=== PATIENT | male | born 1975 ===

== ENCOUNTER 2023-12-28 02:10 | Emergency (ER) | payer MEDICAID, SELFPAY ==
--- NOTE | ~2023-12-28 | CT_ITS ---
EXAMINATION: CT ABDOMEN AND PELVIS WITHOUT CONTRAST CLINICAL INFORMATION: Right flank pain COMPARISON: 02/06/2015 TECHNIQUE: Multidetector volumetric imaging was performed from the superior aspect of the liver through the pubic symphysis. Sagittal and coronal reformatted images were obtained on the technologist's workstation. This CT examination was performed using dose optimization techniques as appropriate, variously including the following: *Automated exposure control *Adjustment of mA and/or kV according to patient size (this includes techniques or standardized protocols for targeted exams where dose is matched to indication/reason for exam; i.e. extremities or head) *Use of iterative reconstruction technique DLP: 784 mGy-cm FINDINGS: LUNG BASES: Subsegmental atelectasis at the right lung base. Right hemidiaphragm elevation noted. LIVER, GALLBLADDER, AND BILIARY TREE: The liver is normal in size, shape, and attenuation. No focal hepatic lesion or biliary ductal dilatation is identified on this noncontrast exam. Patient is status post cholecystectomy. PANCREAS: Unremarkable. SPLEEN: Unremarkable. ADRENAL GLANDS: Unremarkable. KIDNEYS AND URETERS: There is a 3 mm calculus at the distal right ureter with mild hydronephrosis. No left-sided hydronephrosis. Few scattered bilateral renal calculi are noted measuring up to 3 mm. BLADDER: Unremarkable. GASTROINTESTINAL TRACT: Assessment for wall thickening in some segments of the colon is limited due to luminal collapse, though no significant pericolonic stranding is seen to strongly suggest a colitis. Mild colonic diverticulosis. No evidence of bowel obstruction. The appendix is unremarkable. No free fluid or free air is seen. ABDOMINAL WALL: No significant hernia is appreciated. LYMPH NODES: Normal. VASCULAR: Scattered mild atherosclerotic calcification. PELVIC VISCERA: Unremarkable. OSSEOUS STRUCTURES: Scattered endplate osteophytes in the spine. Degenerative disc disease at L5-S1. CT/CT abdomen pelvis wo IV con IMPRESSION: 1. Distal right ureteral calculus measuring 3 mm with mild hydronephrosis. 2. Few scattered bilateral renal calculi.
[2023-12-28 02:15] VITALS: BP 199/112; PULSE 72; RESP 18; TEMP 36.8; O2SAT 99; BMI 31.8
[2023-12-28 02:33] LABS: Basophils Absolute Auto 0.1 X10*3/uL (0.0-0.2); Basophils Percent Auto 0.5 % (0-2); Eosinophils Absolute Auto 0.5 X10*3/uL (0.0-0.4); Eosinophils Percent Auto 3.5 % (0-4); Hemoglobin 15.5 g/dl (14.0-18.0); Imm Gran Abs Auto 0.05 X10*3/uL (0.00-0.03); Imm Gran Pct Auto 0.4 % (0.0-0.4); Lymphocytes Absolute Auto 3.9 X10*3/uL (1.2-4.9); Lymphocytes Percent Auto 28.4 % (20-40); MANUAL DIFF FLAG NO; Mean Corpuscular Hemoglobin 30.8 pg (27.0-33.0); Mean Corpuscular Volume 85.3 fL (80.0-98.0); Mean Platelet Volume 9.3 fL (9.4-12.4); Monocytes Percent Auto 7.1 % (2-11); Neutrophils Absolute Auto 8.2 x10*3/uL (2.0-8.3); Neutrophils Percent Auto 60.1 % (45-73); Platelet Count 391 X10*3/uL (160-400); Red Blood Count 5.04 X10*6/uL (4.60-5.80); Red Cell Distribution Width 13.2 % (11.0-16.0); White Blood Count 13.7 X10*3/uL (4.8-10.8)
[2023-12-28 03:01] LABS: Alanine Aminotransferase 44 U/L (0-40); Albumin Level 4.1 g/dL (3.5-5.0); Alkaline Phosphatase 87 U/L (39-117); Anion Gap 14 (12-20); Aspartate Amino Transferase 25 U/L (5-37); Bilirubin Total 0.6 mg/dL (0.0-1.0); Blood Urea Nitrogen 10 mg/dL (9-16); Calcium 9.5 mg/dL (8.4-10.2); Carbon Dioxide 26 mmol/L (22-29); Chloride 106 mmol/L (96-108); Creatinine Clr Calc Pharmacy 104.9; Estimated Glomerular Filt Rate > 60; Glucose Random 121 mg/dL (60-115); Potassium 3.2 mmol/L (3.3-5.1); Sodium 143 mmol/L (135-145); Total Protein 7.5 g/dL (6.5-8.0)
--- NOTE | 2023-12-28 03:27 | ED.ABDPAIN ---
HPI - Abdominal Pain General Chief Complaint: Abdominal Pain Stated Complaint: severe back pain Time Seen by Provider: 12/28/23 03:25 History of Present Illness HPI narrative: Patient is a 48-year-old male presents today with having sudden onset of right flank pain 10/10 associated with nausea no change with movement history of kidney stones in the past feels the same. No history of abdominal surgery. Related Data Previous Rx's ?Medication ?Instructions ?Recorded ibuprofen 400 mg tablet 400 mg PO Q6H PRN pain #20 tabs 12/28/23 ondansetron 4 mg disintegrating 4 mg PO TID PRN nausea and 12/28/23 tablet vomiting 5 days #10 tabs oxycodone 5 mg tablet 5 mg PO Q8H PRN pain #7 tabs 12/28/23 tamsulosin 0.4 mg capsule (Flomax) 0.4 mg PO DAILY #7 caps 12/28/23 Allergies Allergy/AdvReac Type Severity Reaction Status Date / Time No Known Allergies Allergy Unverified 12/28/23 02:17 Review of Systems Review of Systems Positive right flank pain Yes all other systems are reviewed and are negative [facility] Past Medical History Attestation statement: The following information was validated with the patient. Social History Social History Use of substances other than those prescribed or required for medical reasons: No Advance Directives: No Advance Directives Information Provided: Yes Physical Exam ED Vital Signs: Vital Signs - 24 hr 12/28/23 02:15 12/28/23 05:00 Temperature 98.2 F 97.3 F Pulse Rate 72 67 Respiratory Rate 18 16 Blood Pressure 199/112 H 167/94 H Pulse Oximetry 99 95 Oxygen Delivery Method Room Air Room Air BMI result Body Mass Index 31.8 Appearance: Alert. Oriented X3. No acute distress. Eyes: Pupils equal, round and reactive to light. ENT: Pharynx normal. Neck: Normal inspection. Neck supple. No lymph nodes noted. No crepitus CVS: Normal heart rate and rhythm. Pulses normal. Normal S1 and S2 Respiratory: No respiratory distress. Breath sounds normal. No Wheezing. No rales Abdomen: Soft and nontender. No rigidity. No distention. good BS x4 Skin: Skin warm and dry. Normal skin color. Normal skin turgor. Extremities: No lower extremity edema. Neurovascular intact to all extremities. No Lacerations. No Rash Neuro: Oriented X 3. No motor deficit. No sensory deficit. Moving all extermities. No slurred speech Medical Decision Making Medical Decision Making MDM Narrative: Patient's CT scan of the abdomen pelvis was done. Radiology's reading showed a 3 mm ureteral stone likely causing patient's pain. Given multiple doses of pain medicine. If urine is not infected, pain is controlled patient can be discharged home. His creatinine is normal. Well-appearing no distress. Differential Diagnosis Differential Diagnoses: The differential diagnosis associated with the presentation includes Renal colic, appendicitis Admission/Observation Consideration of admission/observation: Escalation of care including admission/observation considered Lab Data [facility] Lab Attestation statement: I reviewed the patient's lab results. 12/28/23 02:28 12/28/23 02:28 Labs: Lab Results 12/28/23 Range/Units 02:28 WBC 13.7 H (4.8-10.8) X10*3/uL RBC 5.04 (4.60-5.80) X10*6/uL Hgb 15.5 (14.0-18.0) g/dl Hct 43.0 (42.0-52.0) % MCV 85.3 (80.0-98.0) fL MCH 30.8 (27.0-33.0) pg MCHC 36.0 (31.0-36.0) g/dl RDW 13.2 (11.0-16.0) % Plt Count 391 (160-400) X10*3/uL MPV 9.3 L (9.4-12.4) fL Immature Gran % (Auto) 0.4 (0.0-0.4) % Neut % (Auto) 60.1 (45-73) % Lymph % (Auto) 28.4 (20-40) % [place] % (Auto) 7.1 (2-11) % Eos % (Auto) 3.5 (0-4) % Baso % (Auto) 0.5 (0-2) % Lymph # (Auto) 3.9 (1.2-4.9) X10*3/uL [place] # (Auto) 1.0 (0.1-1.2) X10*3/uL Eos # (Auto) 0.5 H (0.0-0.4) X10*3/uL Baso # (Auto) 0.1 (0.0-0.2) X10*3/uL Abs Immat Gran (auto) 0.05 H (0.00-0.03) X10*3/uL Absolute Neuts (auto) 8.2 (2.0-8.3) x10*3/uL Absolute Nucleated RBC 0.000 (0.0-0.012) X10*3/uL Nucleated RBC % (auto) 0.0 (0.0-0.2) /100WBC Sodium 143 (135-145) mmol/L Potassium 3.2 L (3.3-5.1) mmol/L Chloride 106 (96-108) mmol/L Carbon Dioxide 26 (22-29) mmol/L Anion Gap 14 (12-20) BUN 10 (9-16) mg/dL Creatinine 1.03 (0.5-1.4) mg/dL Estim Creat Clear Calc 104.9 Estimated GFR > 60 Random Glucose 121 H (60-115) mg/dL Calcium 9.5 (8.4-10.2) mg/dL Total Bilirubin 0.6 (0.0-1.0) mg/dL AST 25 (5-37) U/L ALT 44 H (0-40) U/L Alkaline Phosphatase 87 (39-117) U/L Total Protein 7.5 (6.5-8.0) g/dL Albumin 4.1 (3.5-5.0) g/dL Independent Interpretation I performed an independent interpretation of an: CT Scan (Positive ureteral stone) Radiology Impression Discussion of test interpretation with radiology: I have reviewed the radiologist's reading. Prescription Management I considered prescription management with: Antibiotic Chronic Conditions History of kidney stones Medications Administered Discontinued Medications Generic Name Dose Route Start Last Admin Trade Name Freq PRN Reason Stop Dose Admin Hydromorphone HCl 0.5 mg 12/28/23 03:26 12/28/23 03:44 Hydromorphone Hcl 0.5 Mg/0.5 Ml Syringe IVPUSH 12/28/23 03:27 0.5 mg ONCE ONE Administration Protocol Hydromorphone HCl 0.5 mg 12/28/23 04:36 12/28/23 04:48 Hydromorphone Hcl 0.5 Mg/0.5 Ml Syringe IVPUSH 12/28/23 04:37 0.5 mg ONCE ONE Administration Protocol Sodium Chloride 1,000 mls @ 999 mls/hr 12/28/23 03:30 12/28/23 04:53 Ns IV 12/28/23 04:30 Infused .Q1H1M PINKY Infusion Ketorolac Tromethamine 30 mg 12/28/23 03:25 12/28/23 03:44 Ketorolac Tromethamine 30 Mg/Ml Vial IVPUSH 12/28/23 03:26 30 mg ONCE ONE Administration Ondansetron HCl 4 mg 12/28/23 03:36 12/28/23 03:44 Ondansetron Hcl 4 Mg/2 Ml Vial IVPUSH 12/28/23 03:37 4 mg ONCE ONE Administration Discharge Plan Discharge Clinical Impression: Renal colic Patient Disposition: Still a Patient Instructions: Renal Colic (ED) Prescriptions: New tamsulosin [Flomax] 0.4 mg capsule 0.4 mg PO DAILY Qty: 7 0RF ibuprofen 400 mg tablet 400 mg PO Q6H PRN (Reason: pain) Qty: 20 0RF ondansetron 4 mg tablet,disintegrating 4 mg PO TID PRN (Reason: nausea and vomiting) 5 Days Qty: 10 0RF oxycodone 5 mg tablet 5 mg PO Q8H PRN (Reason: pain) Qty: 7 0RF Rx Instructions: Partial Fill upon patient request. Referrals: Oseas Levy MD [Physician] - 12/30/23 Print Language: Latvian
[2023-12-28] MEDS: Ketorolac Tromethamine 30 MG/ML VIAL IVPUSH (03:44)
[2023-12-28] MEDS: HYDROmorphone HCl 0.5 MG/0.5 ML SYRINGE IVPUSH ×3 (03:44→06:12)
[2023-12-28] MEDS: 0.9 % Sodium Chloride 1,000 ML 999 ML IV (03:44)
[2023-12-28] MEDS: ondansetron HCL 4 MG/2 ML VIAL IVPUSH (03:44)
--- NOTE | 2023-12-28 03:50 | PC.NURSE ---
Pt medicated per mar, Iv placed, provider into assess pt.
--- NOTE | 2023-12-28 04:52 | PC.NURSE ---
MEDICATED PER MAR.
[2023-12-28 05:00] VITALS: BP 167/94; PULSE 67; RESP 16; TEMP 36.3; O2SAT 95
[2023-12-28 05:47] LABS: Appearance Urine Clear; Color Urine Yellow; Glucose Urine UA Negative (Negative); Leukocyte Esterase Urine Negative (Negative); Nitrite Urine Negative (Negative); PH 5.5 (5.0-9.0); UMIC TRIGGER UACC YES; Urine Blood Large (3+) (Negative); Urine Ketones Negative (Negative); Urine Protein Trace mg/dL (Neg-Trace)
[2023-12-28 05:52] LABS: Bacteria Urine None Seen (None Seen); Hyaline Casts Urine 0-2 /LPF (0-2); RBC Urine >20 /HPF (0-2); Squamous Epithelial Cell Urine 0-2 /HPF (0-2); WBC Urine 0-5 /HPF (0-5)
[2023-12-28 06:09] VITALS: BP 178/93; PULSE 65; RESP 18; TEMP 36.4; O2SAT 97
--- NOTE | 2023-12-28 06:17 | PC.NURSE ---
PT MEDICATED PER JUL FOR PAIN MANAGEMENT.
--- NOTE | 2023-12-28 06:44 | MHC.EDTECH ---
Olivia Jennings aware of elevated blood pressure, per provider okay to discharge home. Reviewed discharge instruction with pt. pt verbalized understanding.
[2023-12-28 06:53] VITALS: BP 185/92; PULSE 72; RESP 20; TEMP 36.8; O2SAT 98
== END 2023-12-28 06:54 | disposition home or self-care (01) ==
PROVIDERS: Emergency Provider Emergency Medicine Emergency Medical Services
DX: N23 Unspecified renal colic (principal); M54.50 Low back pain, unspecified; R11.0 Nausea; Z79.899 Other long term (current) drug therapy
CPT/HCPCS: 36415; 74176; 80053; 81001; 85025; 96361; 96374; 96375; 96376; 99285; J1170; J1885; J2405

== ENCOUNTER 2023-12-31 05:40 | Emergency (ER) | payer MEDICAID, SELFPAY ==
--- NOTE | ~2023-12-31 | CT_ITS ---
EXAMINATION: CT ABDOMEN AND PELVIS WITHOUT CONTRAST CLINICAL INFORMATION: Abdominal pain. COMPARISON: 12/28/2023 TECHNIQUE: Multidetector volumetric imaging was performed from the superior aspect of the liver through the pubic symphysis. Sagittal and coronal reformatted images were obtained on the technologist's workstation. This CT examination was performed using dose optimization techniques as appropriate, variously including the following: *Automated exposure control *Adjustment of mA and/or kV according to patient size (this includes techniques or standardized protocols for targeted exams where dose is matched to indication/reason for exam; i.e. extremities or head) *Use of iterative reconstruction technique DLP: 993 mGy-cm FINDINGS: LUNG BASES: No pleural or pericardial effusion. LIVER, GALLBLADDER, AND BILIARY TREE: The noncontrast liver is decreased in attenuation. No focal hepatic lesion or biliary ductal dilatation is present. The gallbladder is surgically absent. PANCREAS: No ductal dilatation. SPLEEN: Not enlarged. ADRENAL GLANDS: No adrenal mass. KIDNEYS AND URETERS: No change in appearance of the left kidney with a 3 mm nonobstructing mid pole calculus. No hydronephrosis or hydroureter. Mild right hydroureteronephrosis. Edematous right kidney with perinephric and periureteric stranding. There are few nonobstructing right renal calculi with the largest measuring 4 mm in the midpole. BLADDER: Underdistended. 4 mm calculus is now seen within the bladder lumen. GASTROINTESTINAL TRACT: Small and large bowel loops are of normal caliber. No small bowel obstruction. Appendix is within normal limits. ABDOMINAL WALL: Small fat-containing umbilical hernia. LYMPH NODES: No bulky lymphadenopathy. VASCULAR: Normal caliber abdominal aorta. PELVIC VISCERA: Unremarkable. OSSEOUS STRUCTURES: No destructive bone lesions. CT/CT abdomen pelvis wo IV con IMPRESSION: Interval displacement/passage of the 4 mm calculus into the bladder lumen. Mild right hydroureteronephrosis. Hepatic steatosis.
[2023-12-31 05:44] VITALS: BP 198/107; PULSE 94; RESP 20; TEMP 37.1; O2SAT 97; BMI 32.3
[2023-12-31 06:20] LABS: Basophils Percent Auto 0.2 % (0-2); Eosinophils Absolute Auto 0.1 X10*3/uL (0.0-0.4); Eosinophils Percent Auto 0.3 % (0-4); Hematocrit 43.4 % (42.0-52.0); Hemoglobin 15.3 g/dl (14.0-18.0); Imm Gran Pct Auto 0.5 % (0.0-0.4); Lymphocytes Percent Auto 9.1 % (20-40); MANUAL DIFF FLAG SCAN; Mean Corpuscular HGB Conc 35.3 g/dl (31.0-36.0); Mean Corpuscular Hemoglobin 30.4 pg (27.0-33.0); Mean Corpuscular Volume 86.1 fL (80.0-98.0); Mean Platelet Volume 9.5 fL (9.4-12.4); Monocytes Absolute Auto 1.5 X10*3/uL (0.1-1.2); Monocytes Percent Auto 6.9 % (2-11); Neutrophils Absolute Auto 18.3 x10*3/uL (2.0-8.3); Platelet Count 384 X10*3/uL (160-400); Red Blood Count 5.04 X10*6/uL (4.60-5.80); Red Cell Distribution Width 13.1 % (11.0-16.0); SCAN SMEAR FLAG 1; White Blood Count 22.1 X10*3/uL (4.8-10.8)
--- NOTE | 2023-12-31 06:24 | ED_ITS ---
HPI - General Adult General Chief complaint: General Medical Stated complaint: no bowel movements, meds not working Time Seen by Provider: 12/31/23 06:22 Source: patient Mode of arrival: ambulatory Limitations: no limitations History of Present Illness ED Provider: genia CHINCHILLA narrative: Patient is a 48-year-old male with history of kidney stones, recently seen in this ED on 12/27 and diagnosed with 3mm calculi to distal right ureter presenting to the emergency department with complaint of right flank pain, difficulty urinating, and no bowel movement since being seen here. States he has had pain and nausea since he was discharged home on Wednesday. Attempted to eat once at home then vomited, has not eaten since. Took prescribed medications, has stopped using oxycodone as this has not decreased his pain. Taking ibuprofen. complaint: right flank pain Onset (ago): day(s) Severity: severe Quality: sharp Pain Consistency: constant Relieving factors: none Associated symptoms: nausea/vomiting Treatments prior to arrival: other Related Data Previous Rx's ?Medication ?Instructions ?Recorded ibuprofen 400 mg tablet 400 mg PO Q6H PRN pain #20 tabs 12/28/23 ondansetron 4 mg disintegrating 4 mg PO TID PRN nausea and 12/28/23 tablet vomiting 5 days #10 tabs oxycodone 5 mg tablet 5 mg PO Q8H PRN pain #7 tabs 12/28/23 tamsulosin 0.4 mg capsule (Flomax) 0.4 mg PO DAILY #7 caps 12/28/23 prednisone 20 mg tablet 20 mg PO DAILY 5 days #5 tabs 12/30/23 cefuroxime axetil 500 mg tablet 500 mg PO BID #14 tabs 12/31/23 phenazopyridine 100 mg tablet 100 mg PO TID PRN pain 6 doses #6 12/31/23 tabs Allergies Allergy/AdvReac Type Severity Reaction Status Date / Time No Known Allergies Allergy Verified 12/31/23 05:45 Review of Systems 2 Review of Systems: As per HPI. Yes all other systems are reviewed and are negative Constitutional: Constitutional: Reports as per HPI [facility] Social History Social History Alcohol intake: never Smoked in Last 30 Days: Yes Use of substances other than those prescribed or required for medical reasons: No Advance Directives: No Advance Directives Information Provided: Yes Do you have a plan to hurt others: No Plan Physical Exam ED Vital Signs: Vital Signs - 24 hr 12/31/23 05:44 12/31/23 06:30 12/31/23 10:48 Temperature 98.8 F 98.6 F Pulse Rate 94 77 67 Respiratory Rate 20 20 20 Blood Pressure 198/107 H 148/114 H 171/97 H Pulse Oximetry 97 97 96 Oxygen Delivery Method Room Air Room Air Room Air BMI result Body Mass Index 32.3 Vital signs have been reviewed and appear to be correct. Blood pressure elevated. Heart rate normal. Respiratory rate normal. Temperature normal. Oxygen saturation normal. Const General: cooperative and no acute distress Orientation/consciousness: oriented to person, oriented to place, oriented to time and patient oriented x3 Limitations: no limitations HENMT Head: Yes normocephalic and Yes atraumatic Ears: external ears normal General nose exam: Normal external nose present Face and sinus: Yes face symmetric Mouth: oropharynx normal and moist mucous membranes Throat: Yes uvula midline Eyes Pupils: Equal, round and reactive pupils present Neck Neck: Yes normal visual inspection and Yes supple Resp Effort & Inspection: normal respiratory effort and able to speak in complete sentences Auscultation: clear to auscultation bilaterally Cardio Rate: regular rate Rhythm: regular rhythm Heart sounds: S1 normal heart sound present and S2 normal heart sound present GI Palpation (GI): Soft to palpation and nontender Auscultation: normoactive bowel sounds General: Yes CVA tenderness on the right Back/Spine/Pelvis Back: CVA tenderness Skin General skin exam: elasticity normal and turgor normal Neuro General: oriented to person, oriented to place, oriented to time, patient oriented x3, moves all extremities, no focal motor deficits and CN's II-XI intact bilaterally Cranial nerves: Yes Equal, round and reactive pupils present Cognition (Neuro): normal cognition Extrem General: Yes full ROM, Yes no pedal edema and Yes no calf tenderness Psych Mental Status: mental status grossly normal Affect: normal affect Thought process: Normal thought process present Medications Administered Discontinued Medications Generic Name Dose Route Start Last Admin Trade Name Freq PRN Reason Stop Dose Admin Sodium Chloride 1,000 mls @ 999 mls/hr 12/31/23 06:45 12/31/23 10:53 Ns IV 12/31/23 07:45 Infused .Q1H1M PINKY Infusion Ceftriaxone Sodium 1 gm/ 50 mls @ 100 mls/hr 12/31/23 10:36 12/31/23 11:17 Sodium Chloride IV 12/31/23 11:05 Infused ONCE ONE Infusion Ketorolac Tromethamine 15 mg 12/31/23 06:36 12/31/23 06:43 Ketorolac Tromethamine 15 Mg/Ml Vial IVPUSH 12/31/23 06:37 15 mg ONCE ONE Administration Morphine Sulfate 4 mg 12/31/23 11:26 12/31/23 11:30 Morphine Sulfate 4 Mg/Ml Cartridge IVPUSH 12/31/23 11:27 4 mg ONCE ONE Administration Protocol Ondansetron HCl 4 mg 12/31/23 06:36 12/31/23 06:43 Ondansetron Hcl 4 Mg/2 Ml Vial IVPUSH 12/31/23 06:37 4 mg ONCE ONE Administration Medical Decision Making Medical Decision Making [facility] Narrative: Patient is a 48-year-old male with history of kidney stones, recently seen in this ED on 12/27 and diagnosed with 3mm calculi to distal right ureter presenting to the emergency department with complaint of right flank pain, difficulty urinating, and no bowel movement since being seen here. On exam patient is awake, A+Ox3, BP elevated, VS otherwise WNL, afebrile, normal neurological exam without focal deficits, physical exam findings as above. Given reported symptoms and physical exam findings, initial differential includes UTI/pyelonephritis, obstructive uropathy. Labs notable for leukocytosis with left shift, elevated BUN/cr. Urinalysis notable for 2+ leukocytes, 3+ blood, 21-50 WBCs, will treat for UTI. One dose of IV ceftriaxone given in the ED. CT A/P notable for displacement of 4mm calculus into the bladder. My interpretation is in agreement with the radiologist's interpretation. Patient states that his pain improved prior to getting CT scan. Differential Diagnosis Differential Diagnoses: The differential diagnosis associated with the presentation includes As per [facility] Admission/Observation Consideration of admission/observation: Escalation of care including admission/observation considered Patient would have been admitted to the hospital had their work up had any findings where hospital admission was appropriate and their clinical presentation warranted hospital admission. Lab Data [facility] Lab Attestation statement: I reviewed the patient's lab results. As per [facility] 12/31/23 06:16 12/31/23 06:16 Labs: Lab Results 12/31/23 12/31/23 Range/Units 06:16 09:46 WBC 22.1 H (4.8-10.8) X10*3/uL RBC 5.04 (4.60-5.80) X10*6/uL Hgb 15.3 (14.0-18.0) g/dl Hct 43.4 (42.0-52.0) % MCV 86.1 (80.0-98.0) fL MCH 30.4 (27.0-33.0) pg MCHC 35.3 (31.0-36.0) g/dl RDW 13.1 (11.0-16.0) % Plt Count 384 (160-400) X10*3/uL MPV 9.5 (9.4-12.4) fL Immature Gran % (Auto) 0.5 H (0.0-0.4) % Neut % (Auto) 83.0 H (45-73) % Lymph % (Auto) 9.1 L (20-40) % [place] % (Auto) 6.9 (2-11) % Eos % (Auto) 0.3 (0-4) % Baso % (Auto) 0.2 (0-2) % Lymph # (Auto) 2.0 (1.2-4.9) X10*3/uL [place] # (Auto) 1.5 H (0.1-1.2) X10*3/uL Eos # (Auto) 0.1 (0.0-0.4) X10*3/uL Baso # (Auto) 0.0 (0.0-0.2) X10*3/uL Abs Immat Gran (auto) 0.10 H (0.00-0.03) X10*3/uL Absolute Neuts (auto) 18.3 H (2.0-8.3) x10*3/uL Absolute Nucleated RBC 0.000 (0.0-0.012) X10*3/uL Nucleated RBC % (auto) 0.0 (0.0-0.2) /100WBC Smear Tech's Comments VERIFIED Sodium 137 (135-145) mmol/L Potassium 3.5 (3.3-5.1) mmol/L Chloride 101 (96-108) mmol/L Carbon Dioxide 24 (22-29) mmol/L Anion Gap 16 (12-20) BUN 18 H (9-16) mg/dL Creatinine 1.67 H (0.5-1.4) mg/dL Estim Creat Clear Calc 64.7 Estimated GFR 44 Random Glucose 103 (60-115) mg/dL Calcium 9.2 (8.4-10.2) mg/dL Total Bilirubin 1.1 H (0.0-1.0) mg/dL AST 20 (5-37) U/L ALT 34 (0-40) U/L Alkaline Phosphatase 94 (39-117) U/L Total Protein 7.7 (6.5-8.0) g/dL Albumin 4.1 (3.5-5.0) g/dL Urine Color Dark Yellow Urine Appearance Cloudy Urine pH 5.5 (5.0-9.0) Ur Specific [place] 1.015 (1.005-1.025) Urine Protein Trace (Neg-Trace) mg/dL Urine Glucose (UA) Negative (Negative) mg/dL Urine Ketones 40 (Negative) mg/dL Urine Blood Large (3+) H (Negative) Urine Nitrite Negative (Negative) Ur Leukocyte Esterase Moderate (2+) H (Negative) Urine RBC >20 H (0-2) /HPF Urine WBC 21-50 H (0-5) /HPF Ur Squamous Epith Cells 0-2 (0-2) /HPF Urine Bacteria None Seen (None Seen) Hyaline Casts 3-5 (0-2) /LPF Independent Interpretation I performed an independent interpretation of an: CT Scan Interpretation: CT A/P notable for displacement of 4mm calculus into the bladder. Radiology Impression Discussion of test interpretation with radiology: I have reviewed the radiologist's reading. Radiologist Impression: CT/CT abdomen pelvis wo IV con IMPRESSION: Interval displacement/passage of the 4 mm calculus into the bladder lumen. Mild right hydroureteronephrosis. Hepatic steatosis. External Record Review External record reviewed: Inpatient record, Office record and Outpatient record Prescription Management I considered prescription management with: Pain Medication and Antibiotic Discharge Plan Discharge Clinical Impression: Urinary tract infection, Renal colic on right side Patient Disposition: Home, Self-Care Instructions: Urinary Tract Infection in Men (DC), Renal Colic (ED) Additional Instructions: You were evaluated in the emergency department today for flank pain. Your urine shows evidence of infection and you are being treated with antibiotics. Please complete the full course as prescribed. Your CT scan shows that your kidney stone has moved into your bladder. We recommend that you follow up with your primary care provider as well as urology. Return to the emergency department if you develop worsening pain, persistent vomiting, fever, have blood in your urine, are unable to urinate or any other concerning symptoms. Prescriptions: New phenazopyridine 100 mg tablet 100 mg PO TID PRN (Reason: pain) Qty: 6 0RF cefuroxime axetil 500 mg tablet 500 mg PO BID Qty: 14 0RF No Action prednisone 20 mg tablet 20 mg PO DAILY 5 Days Qty: 5 0RF tamsulosin [Flomax] 0.4 mg capsule 0.4 mg PO DAILY Qty: 7 0RF ibuprofen 400 mg tablet 400 mg PO Q6H PRN (Reason: pain) Qty: 20 0RF ondansetron 4 mg tablet,disintegrating 4 mg PO TID PRN (Reason: nausea and vomiting) 5 Days Qty: 10 0RF oxycodone 5 mg tablet 5 mg PO Q8H PRN (Reason: pain) Qty: 7 0RF Rx Instructions: Partial Fill upon patient request. Referrals: [facility] [Provider Group] Print Language: Kyrgyz
[2023-12-31 06:30] VITALS: BP 148/114; PULSE 77; RESP 20; O2SAT 97
[2023-12-31 06:34] LABS: Alanine Aminotransferase 34 U/L (0-40); Albumin Level 4.1 g/dL (3.5-5.0); Alkaline Phosphatase 94 U/L (39-117); Anion Gap 16 (12-20); Aspartate Amino Transferase 20 U/L (5-37); Bilirubin Total 1.1 mg/dL (0.0-1.0); Blood Urea Nitrogen 18 mg/dL (9-16); Calcium 9.2 mg/dL (8.4-10.2); Carbon Dioxide 24 mmol/L (22-29); Chloride 101 mmol/L (96-108); Creatinine Clr Calc Pharmacy 64.7; Estimated Glomerular Filt Rate 44; Glucose Random 103 mg/dL (60-115); Potassium 3.5 mmol/L (3.3-5.1); Sodium 137 mmol/L (135-145); Total Protein 7.7 g/dL (6.5-8.0)
[2023-12-31] MEDS: 0.9 % Sodium Chloride 1,000 ML 999 ML IV (06:41)
[2023-12-31] MEDS: ondansetron HCL 4 MG/2 ML VIAL IVPUSH (06:43)
[2023-12-31] MEDS: Ketorolac Tromethamine 15 MG/ML VIAL IVPUSH (06:43)
[2023-12-31 06:53] LABS: SLIDE REVIEW VERIFIED
[2023-12-31 09:52] LABS: Appearance Urine Cloudy; Color Urine Dark Yellow; Glucose Urine UA Negative (Negative); Leukocyte Esterase Urine Moderate (2+) (Negative); Nitrite Urine Negative (Negative); PH 5.5 (5.0-9.0); Specific Gravity - Urine 1.015 (1.005-1.025); UMIC TRIGGER UACC YES; Urine Blood Large (3+) (Negative); Urine Ketones 40 mg/dL (Negative); Urine Protein Trace mg/dL (Neg-Trace)
[2023-12-31 10:04] LABS: Bacteria Urine None Seen (None Seen); RBC Urine >20 /HPF (0-2); Squamous Epithelial Cell Urine 0-2 /HPF (0-2); UACC Culture Trigger YES; WBC Urine 21-50 /HPF (0-5)
[2023-12-31] MEDS: cefTRIAXone sodium 1 GM in 0.9 % Sodium Chloride 50 ML IV (10:47)
[2023-12-31 10:48] VITALS: BP 171/97; PULSE 67; RESP 20; TEMP 37; O2SAT 96
--- NOTE | 2023-12-31 11:16 | PC.NURSE ---
this nurse took over pt care from lewis at 11am, pt a&ox3, c/o 01/07 rt flank pain, will notify provider, call burgos within reach, will continue to monitor
[2023-12-31] MEDS: Morphine Sulfate 4 MG/ML CARTRIDGE IVPUSH (11:30)
--- NOTE | 2023-12-31 11:31 | PC.NURSE ---
pt medicated with pain meds per order
[2023-12-31 15:18] VITALS: BP 156/86; PULSE 73; RESP 18; TEMP 36.7; O2SAT 97
== END 2023-12-31 15:18 | disposition home or self-care (01) ==
PROVIDERS: Emergency Provider Student in an Organized Health Care Education/Training Program
DX: N39.0 Urinary tract infection, site not specified (principal); N23 Unspecified renal colic; R11.2 Nausea with vomiting, unspecified
CPT/HCPCS: 36415; 74176; 80053; 81001; 85025; 87086; 96361; 96365; 96375; 99284; 99285; J0696; J1885; J2270; J2405